=== PATIENT | female | born 1960 | race Caucasian/White ===

== ENCOUNTER 2017-03-22 14:51 | Emergency (ER) | payer BC ==
[~2017-03-22] VITALS: Ht 162.6 cm; Wt 102.0 kg
[2017-03-22 14:58] VITALS: TEMP 36.4; Ht 162.6 cm; Wt 102.0 kg
--- NOTE | 2017-03-22 15:09 | EMERGENCY ROOM VISIT NOTE ---
History First contact with patient: 15:01 Chief Complaint: HAND PAIN/INJURY Stated Complaint: FELL, HURT HAND - CHECK IF BROKEN History of Present Illness The patient is a 56 year old female who presents to the Emergency Room via private vehicle with complaints of "fell, hurt hand, check if broken". The patient states that just minutes prior to arrival, around 2:35 PM she was walking when her flip flop caught the curb and she fell forward. She struck the right hand, right arm and the right side of her face. She states that she did not lose consciousness and denies any pain in the face or arm but is here because she has pain at the base of the right hand. She notes she is right- handed, rates her pain as a 9/10, and for occupation she is an parts expediter. She is unsure of her tetanus is up-to-date, but notes she will follow-up with her family doctor to identify its status. Review of Systems A complete 10-point Review of Systems was discussed with the patient, with pertinent positives and negatives listed in the History of Present Illness. All remaining Review of Systems questions can be considered negative unless otherwise specified. Past Medical/Surgical History No pertinent. Family History No pertinent. Social History Smoking Status: Never Smoker Patient is currently employed as an parts expediter. Current/Historical Medications Scheduled Multiple Vitamins W/ Minerals (Womens One Daily), 1 TAB PO DAILY Physical Exam Vital Signs Date Time Temp Pulse Resp B/P (MAP) Pulse Ox O2 Delivery O2 Flow Rate FiO2 03/22/17 14:58 36.4 92 20 154/ 96 Room Air Physical Exam VITAL SIGNS - Vital signs and nursing notes were reviewed. Afebrile, hypertensive, not tachycardic and saturating 196%. GENERAL -56-year-old female appearing her stated age who is in no acute distress. Communicates well with provider and answers questions appropriately. SKIN - small, superficial abrasion noted to the right side of the face, right shoulder. No active bleeding noted. HEAD - NC/AT. EYES - PERRL with EOMI bilaterally. Sclera anicteric. No hyphema. EARS - No deformities of external structures noted on gross examination bilaterally. NOSE - Midline and without cyanosis. No epistaxis or purulent drainage noted. MOUTH/OROPHARYNX - Without perioral cyanosis. Buccal mucosa pink and moist and without leukoplakia. LUNGS - Chest wall symmetric without accessory muscle use, intercostals retractions, or central cyanosis. Normal vesicular breath sounds CTA B/L. No wheezes, rales, or rhonchi appreciated. CARDIAC - RRR with S1/S2. No murmur, rubs, or gallops appreciated. EXTREMITIES - No clubbing or peripheral cyanosis. No pretibial edema present. Therefore range of motion of the right hand and associated digits. There is point tenderness at the base of the right hand extending up to the base of the third and fourth digit. The integument is unremarkable. No edema. She is neurovascularly intact in this region. +5/5 strength noted in UE/LE bilaterally. Medical Decision & Procedures ER Provider Diagnostic Interpretation: RIGHT HAND MIN 3 VIEWS ROUTINE CLINICAL HISTORY: 56 years-old Female presenting with Right hand pain s/p fall. Ventral/palmar aspect. Fifth metacarpal injury. TECHNIQUE: Frontal, oblique, and lateral views the right hand were obtained. COMPARISON: None. FINDINGS: Radiocarpal, intercarpal and carpometacarpal articulations preserved. No acute fracture or malalignment. No significant degenerative change is evident. IMPRESSION: No acute osseous injury of the right hand. Electronically signed by: Pedro Bolaños M.D. 03/22/2017 3:41 PM Dictated Date/Time: 03/22/2017 3:40 PM Medical Decision Patient was seen and evaluated as above. She presents to us today with right hand pain status post fall. She examines well, and only has pain overlying the base of the right hand.Radiograph results as above. No acute fracture dislocation. Patient appears stable for outpatient management. She'll be fitted with a Velcro thumb spica splint to help immobilize. She is to follow- up with orthopedics regarding her injury here today. She is to return for worsening. She was educated upon the possibility of an occult/hairline fracture. She had questions prior to discharge, and was discharged home in good condition. In the evaluation and treatment of this patient, the following differential diagnoses were considered: Wrist Sprain, Wrist Fracture, Wrist Dislocation, Scapholunate Dissociation, Carpal Fracture, Metacarpal Fracture, Radial Styloid Process Fracture, Ulnar Styloid Process Fracture, or Carpal Tunnel Syndrome. Impression Primary Impression: Hand pain Departure Information Dispostion Home / Self-Care Condition GOOD Referrals Crow Cobb M.D. (PCP) Cayetano Lerner M.D. Patient Instructions [facility] Additional Instructions You have been treated in the Emergency Department for Wrist Pain. For pain control, you can use the following daff-nyx-bdizmba medicines (if >12 yo): - Regular strength (325mg/tab) Tylenol (acetaminophen) 2 tabs every 4-6 hours as needed. Do not exceed 12 tablets in a 24 hour period. Avoid taking more than 3 grams (3000 mg) of Tylenol per day. This includes any other sources of acetaminophen you may take on a regular basis. - Regular strength (200 mg/tab) Advil (ibuprofen) 1-2 tabs every 4-6 hours as needed. Do not exceed a dose of 3200 mg per day. If this is a recent injury (<24 hrs), ice can be applied to the area of pain for the first 3 days to help decrease pain and inflammation. You have been provided the number for an Orthopaedic Surgeon. You should call this number as soon as possible to establish a follow-up visit from today's Emergency Department visit. Keep the brace/splint in place until evaluated by Orthopedics. Return to the Emergency Department if your current symptoms worsen despite treatment course outlined above, or if you develop any of the following symptoms : intractable pain despite aforementioned treatment course or new onset of numbness or tingling of the fingers. Please return to the emergency department with any new/concerning symptoms.
[2017-03-22] MEDS ORDERED: MULT-240 PO (15:25)
--- NOTE | 2017-03-22 15:43 | DIAGNOSTIC IMAGING REPORT ---
RIGHT HAND MIN 3 VIEWS ROUTINE CLINICAL HISTORY: 56 years-old Female presenting with Right hand pain s/p fall. Ventral/palmar aspect. Fifth metacarpal injury. TECHNIQUE: Frontal, oblique, and lateral views the right hand were obtained. COMPARISON: None. FINDINGS: Radiocarpal, intercarpal and carpometacarpal articulations preserved. No acute fracture or malalignment. No significant degenerative change is evident. IMPRESSION: No acute osseous injury of the right hand. Electronically signed by: Pedro Bolaños M.D. 03/22/2017 3:41 PM Dictated Date/Time: 03/22/2017 3:40 PM
[2017-03-22 16:04] VITALS: BP 146/77; PULSE 72; O2SAT 95
== END 2017-03-22 16:02 | disposition home or self-care (01) ==
LOC: C.EDB 14:54 → C.EDD 16:02
DX: M79.641 Pain in right hand (principal); S00.81XA Abrasion of other part of head, initial encounter; S40.211A Abrasion of right shoulder, initial encounter; W10.1XXA Fall (on)(from) sidewalk curb, initial encounter